=== PATIENT | female | born 1975 | race Caucasian/White ===

== ENCOUNTER 2017-10-28 17:52 | Emergency (ER) | payer SELFPAY ==
[~2017-10-28] VITALS: Ht 162.6 cm; Wt 54.7 kg
[2017-10-28 18:54] LABS: HEMATOCRIT 38.2 % (36.0-46.0); HEMOGLOBIN 13.3 G/DL (11.9-15.5); MCH 29.8 PG (29.0-34.0); MCHC 34.8 G/DL (30.0-36.0); MCV 85.7 FL (83-99); PLATELET COUNT 183 K/uL (156-360); RBC DIS.WIDTH-CV 13.5 % (11.8-14.6); RBC DIS.WIDTH-SD 42.3 % (39-53); RED BLOOD COUNT 4.46 M/uL (3.80-5.20); WHITE BLOOD COUNT 7.5 K/uL (4.1-10.2)
[2017-10-28 19:12] LABS: ALBUMIN 3.3 g/dL (3.2-4.8); CHLORIDE 99 mEq/L (99-109); POTASSIUM 4.1 mEq/L (3.7-5.4); SODIUM 129 mEq/L (136-147)
[2017-10-28 19:14] LABS: GLUCOSE 110 mg/dL (70-99); TOTAL PROTEIN 6.5 g/dL (6.4-8.3)
[2017-10-28 19:16] LABS: TOTAL BILIRUBIN 0.5 mg/dL (0.0-1.0)
[2017-10-28 19:18] LABS: ALKALINE PHOSPHATASE 184 IU/L (3-129); CREATININE 0.9 mg/dL (0.6-1.3); GFR ESTIMATE (CALCULATED) > 59 mL/min/
[2017-10-28 19:19] LABS: UREA NITROGEN (BUN) 11 mg/dL (9-23)
[2017-10-28 19:20] LABS: AST (GOT) 28 IU/L (2-34)
[2017-10-28 19:21] LABS: ALT (GPT) 33 IU/L (3-49)
[2017-10-28 19:30] LABS: QUANTITATIVE HCG < 4.0 MIU/ML
[2017-10-28 19:44] LABS: APPEARANCE SL.HAZY ((CLEAR)); BILIRUBIN NEGATIVE; BLOOD MODERATE; COLOR YELLOW ((YELLOW)); GLUCOSE (STRIP) NEGATIVE; KETONES 20; LEUKOCYTES MODERATE; NITRITE NEGATIVE; PROTEIN (STRIP) 100; SPECIFIC GRAVITY 1.019 (1.000-1.030); UROBILINOGEN 0.2 MG/DL (0.2-1.0)
[2017-10-28 20:05] LABS: BACTERIA NONE SEEN /HPF; EPITHELIAL CELLS 1+ /HPF; HYALINE CASTS 0-5 /LPF; MUCUS TRACE /LPF; RED BLOOD CELLS 0-5 /HPF (0-5); WHITE BLOOD CELLS TNTC /HPF (0-5)
[2017-10-28] MEDS ORDERED: BACTRIM,SEPT1 TABLET PO (22:48)
[2017-10-28 23:13] VITALS: BP 91/72
== END 2017-10-28 23:14 | disposition home or self-care (01) ==
LOC: EME 17:52
PROVIDERS: Physician Assistant
DX: N12 Tubulo-interstitial nephritis, not specified as acute or chronic (principal); Z53.29 Procedure and treatment not carried out because of patient's decision for other reasons; F17.200 Nicotine dependence, unspecified, uncomplicated
CPT/HCPCS: 74177; 80053; 81003; 84702; 85027; 99281; 99285; J0696; J7030